=== PATIENT | male | born 1990 | race Caucasian/White ===

== ENCOUNTER 2023-08-07 13:49 | Emergency (ER) | payer MEDICAID, SELFPAY ==
--- NOTE | 2023-08-07 14:00 | DI.RAD_ITS ---
Exam(s) XR SHOULDER LT COMPLETE 2+V EXAM: XR SHOULDER LT COMPLETE 2+V CLINICAL HISTORY: L shoulder pain, fall snowboarding. TECHNIQUE: 2D digital imaging was performed. Three views. COMPARISON: No exams were available for comparison FINDINGS: BONES: No acute fracture is present. No bony destructive lesion is seen. JOINTS: No dislocation present. SOFT TISSUE: Normal. IMPRESSION: Unremarkable radiographs of the left shoulder. DATA REPOSITORY: RADIATION DOSE DELIVERED:
[2023-08-07 14:02] VITALS: BP 142/92; PULSE 77; RESP 16; TEMP 36.8; O2SAT 97
--- NOTE | 2023-08-07 14:07 | W.ED.GENAD ---
Discharge Plan Disposition Patient Disposition: Home Condition: Stable Discharge Details Clinical Impression: AC separation Primary Care Provider: Unknown,Unknown ED Provider: Raad Hart Home Meds and New Rx's Prescriptions: No Action No Known Home Meds Discharge Instructions Instructions: Acromioclavicular Separation (ED) Additional Instructions: You were seen in the emergency department for your left shoulder injury suffered while snowboarding. You have a likely low-grade AC separation. Please keep your shoulder moving with gentle stretching exercises, rest, ice, compress and elevate the area, take adequate dosing of Tylenol and ibuprofen and follow-up with orthopedics for any persistent pain, do not try to overstrain your injured shoulder with any heavy lifting. Please use therapeutic dosing of Tylenol (acetamenophen) & Advil (ibuprofen) in an alternating fashion as follows: Take 1000mg of Tylenol every 6 hours without missing doses- that is 4 times per day. Senior Living in between the Tylenol dosings, take 400-600mg of Advil also on a 6 hour schedule, that is also 4 times per day. The daily maximum dosing of Tylenol is 4000mg, and the daily maximum dosing of Advil is 2400mg. This is safe to do for weeks. Please note that some common cold medications & prescription pain medications may contain acetamenophen and you need to read OTC drug labels and factor that in to maximum daily dosings. Referrals: [facility] [Provider Group] Discharge Data Discharge Date/Time-TO BE ENTERED AT DEPARTURE: 08/07/23 15:05 HPI General Date/Time Provider Initiated Documentation: 08/07/23 14:05. HPI Narrative: 32 year-old male presents to ED today by POV/ambulating with a chief complaint of L shoulder injury while snowboarding, direct impact to L shoulder with onset just prior to arrival. Quality described as pain with movement of the shoulder, slightly reduced ROM, some tingling down arm, no radiation to deformity, gross swelling, skin changes, neck pain, headstrike, LOC, complete numbness of arm. Severity is described as moderate. Palliating factors include nothing specific attempted yet. Provoking factors include nothing specific. Patient not anticoagulated. Related Data Home Medications Medication Instructions Recorded Confirmed Unknown [No Known Home Meds] 01/29/15 08/07/23 Allergies Allergy/AdvReac Type Severity Reaction Status Date / Time No Known Allergies Allergy Unverified 08/07/23 14:14 General Stated Complaint: Orthopedic MANUEL: 4 Review of Systems All systems reviewed & are unremarkable except as noted in HPI and below Exam Narrative Exam Narrative: GENERAL APPEARANCE: Well-nourished, non-toxic, awake and alert, atraumatic, no acute distress. SKIN: Warm, pink, dry, intact, without rashes/lesions/ulcerations. HEAD: Normocephalic, atraumatic, normal hair distribution for gender/age. EYES: Pupils PERRLA, EOMs intact without nystagmus, normal conjunctiva, no exudates on lids/lashes. ENT: Nares patent, no circumoral cyanosis, no facial swelling NECK: Supple, trachea midline, painless cervical ROM. LUNGS/CHEST: Non-labored respirations, normal A/P diameter, symmetrical expansion, no chest wall deformity HEART (CV/PV): No peripheral edema, no JVD. ABDOMEN: Soft, non-distended, no guarding. MSK: Normal ROM, no swelling/deformity to bilateral UEs or LEs, moving all extremities without weakness, no cyanosis, spine midline without tenderness, normal curvature. L Shoulder: Tenderness to the shoulder without crepitus, no major swelling, no squared off appearance, range of motion intact in the shoulder, slight pain at very maximal range of motion, financial services specialist strength 5/5, left radial pulse 2+, no crepitus to the distal arm, slight prominence of left distal clavicle NEURO: Mental Status AAOx4 - alert to person, place, time, events No facial droop, no forehead involvement. Motor: No focal weakness - strength 5/5 in bilateral UEs and LEs, proximal and distal, symmetric. Sensory: sensation intact to light touch globally. Gait normal: patient ambulated without ataxia into ED room. PSYCH: euthymic, cooperative, pleasant, appropriate speech Course Vital Signs Vital signs: Vital Signs Temperature 36.8 C 08/07/23 14:02 Pulse 77 08/07/23 14:02 Respiratory Rate 16 08/07/23 14:02 Blood Pressure 142/92 H 08/07/23 14:02 Pulse Oximetry 97 08/07/23 14:02 Temperature 36.8 C 08/07/23 14:02 Pulse 77 08/07/23 14:02 Respiratory Rate 16 08/07/23 14:02 Blood Pressure 142/92 H 08/07/23 14:02 Pulse Oximetry 97 08/07/23 14:02 Oxygen Delivery Method Room Air 08/07/23 14:02 Oxygen Flow Rate 0 08/07/23 14:02 Medical Decision Making This dictation utilizes [id number] dictation software and may contain unedited grammatical errors. 32 y/o M presents to ED today with a chief complaint of snowboarding fall just prior to arrival, direct impact to L shoulder, able to range the arm, denies severe pain, no deformity, denies headstrike/LOC. Patients' medical history: negative, otherwise healthy. Family and social history: noncontributory. Pertinent exam findings / vital signs include L Shoulder: Tenderness to the shoulder without crepitus, no major swelling, no squared off appearance, range of motion intact in the shoulder, slight pain at very maximal range of motion, financial services specialist strength 5/5, left radial pulse 2+, no crepitus to the distal arm, slight prominence of left distal clavicle. Differential / pathologies of concern include AC Separation, Fracture, Rotator Cuff Arthropathy. Diagnostic studies of: -XR L Shoulder - slight prominence of L distal clavicle, suspect low-grade AC separation without fracture. Interventions of: -counseled on Ortho f/u after aggressive tx for 1-2 weeks for sprain/failure to improve for AC separation. ED Course/Assessment/Plan: 32-year-old male presents with injury to left shoulder from snowboarding fall I do suspect he has a low-grade AC separation based on my review of the x-ray, he has no fracture no significant suspicion for neurovascular compromise. I counseled him on therapeutic dosing of Tylenol and ibuprofen, RICE therapy and following up with orthopedics should he feel he is not improving in 1 to 2 weeks. Findings not consistent with fracture, neurovascular compromise. Disposition of AC separation. Patient verbalized understanding of the plan and return to ED criteria and engaged in shared decision making. Medical Records Medical records reviewed: Yes I reviewed the patient's medical records. Imaging Data Radiologic Study: Attestation: I personally reviewed and interpreted this imaging study as follows: Imaging: X-Ray Radiologist's impression: EXAM: XR SHOULDER LT COMPLETE 2+V CLINICAL HISTORY: L shoulder pain, fall snowboarding. TECHNIQUE: 2D digital imaging was performed. Three views. COMPARISON: No exams were available for comparison FINDINGS: BONES: No acute fracture is present. No bony destructive lesion is seen. JOINTS: No dislocation present. SOFT TISSUE: Normal. IMPRESSION: Unremarkable radiographs of the left shoulder. Quality:SDOH Health Related Social Needs: No Data to Display PFSH All Active Problems (Updated 08/07/23 @ 14:47 by YOVANY Lewis) AC separation (Acute) Social History Smoking/Tobacco Use Status: Never Smoking risk assessment performed?: Yes Alcohol Intake: current Alcohol Intake frequency: a few times a month Drug use: Never Substance use type: does not use Housing: house Do you feel safe at home: Yes Do you feel safe in your relationship?: Yes
== END 2023-08-07 15:05 | disposition home or self-care (01) ==
LOC: ER 15:02
PROVIDERS: Emergency Provider Physician Assistant
DX: S43.102A Unspecified dislocation of left acromioclavicular joint, initial encounter (principal); W19.XXXA Unspecified fall, initial encounter; Y93.23 Activity, snow (alpine) (downhill) skiing, snowboarding, sledding, tobogganing and snow tubing
CPT/HCPCS: 99283; 73030

== ENCOUNTER 2024-02-09 14:12 | Emergency (ER) | payer OTHER, SELFPAY ==
[2024-02-09 14:14] VITALS: BP 133/91; PULSE 71; RESP 18; TEMP 36.6; O2SAT 97
--- NOTE | 2024-02-09 14:15 | DI.RAD_ITS ---
Exam(s) XR SHOULDER RT COMPLETE 2+V EXAM: XR SHOULDER RT COMPLETE 2+V CLINICAL HISTORY: pain s/p fall. TECHNIQUE: 2D digital imaging was performed. Five views. COMPARISON: CR XR SHOULDER LT COMPLETE 2+V from 08/07/2023 FINDINGS: BONES: No acute fracture is present. No bony destructive lesion is seen. JOINTS: No no glenoid humeral joint dislocation present. The AC joint is widened. The acromial clav icular distance is also widened. The clavicle projects superior to the level of the acromion. Mild spurring at the glenoid. SOFT TISSUE: Normal. IMPRESSION: Acromioclavicular joint separation. DATA REPOSITORY: RADIATION DOSE DELIVERED:
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
[2024-02-09 15:28] VITALS: BP 120/78; PULSE 80; RESP 18; TEMP 36.8; O2SAT 97
== END 2024-02-09 15:35 | disposition home or self-care (01) ==
PROVIDERS: Emergency Provider Emergency Medicine
DX: S43.101A Unspecified dislocation of right acromioclavicular joint, initial encounter (principal); V18.0XXA Pedal cycle driver injured in noncollision transport accident in nontraffic accident, initial encounter
CPT/HCPCS: 99283; 73030

== ENCOUNTER 2024-02-20 15:39 | Outpatient (CLI) | payer OTHER, SELFPAY ==
--- NOTE | 2024-02-20 15:15 | DI.RAD_ITS ---
Exam(s) XR CLAVICLE RT EXAM: XR CLAVICLE RT INDICATION: F/U ACJ SEPARATION. COMPARISON: CR XR SHOULDER LT COMPLETE 2+V from 08/07/2023 CR XR SHOULDER RT COMPLETE 2+V from 02/09/2024 TECHNIQUE: 2D digital imaging was performed. Two views. FINDINGS: There is increased widening of the AC joint and coracoclavicular distance compared to the prior exam. No evidence of fractures. DATA REPOSITORY: RADIATION DOSE DELIVERED:
== END 2024-02-20 15:40 | disposition home or self-care (01) ==
LOC: DIORS 15:40
PROVIDERS: Visit Provider Student in an Organized Health Care Education/Training Program
DX: S43.101D Unspecified dislocation of right acromioclavicular joint, subsequent encounter (principal); X58.XXXD Exposure to other specified factors, subsequent encounter
CPT/HCPCS: 73000

== ENCOUNTER 2024-03-12 11:12 | Outpatient (CLI) | payer OTHER, SELFPAY ==
--- NOTE | 2024-03-12 08:30 | DI.MRI_ITS ---
Exam(s) MR UPPER JOINT RT WO EXAM: MR UPPER JOINT RT WO CLINICAL HISTORY: SURGICAL PLANNING S43.101A DISLOCATION RT SHOULDER TECHNIQUE: Multiplanar multisequence MRI of the shoulder was performed. COMPARISON: CR XR SHOULDER LT COMPLETE 2+V from 08/07/2023 CR XR SHOULDER RT COMPLETE 2+V from 02/09/2024 CR XR CLAVICLE RT from 02/20/2024 FINDINGS: MARROW:There is no evidence of fracture, Hill-Sachs deformity, nor ominous osseous lesions. AC JOINT: There is disruption of the AC joint with 1 cm between the articular surfaces and the latera l clavicle located higher than acromium articular surface and with tearing of both the superior and i nferior aspects of the capsule of the AC joint and intervening fluid.. There is abnormal signal rela antonietta to the coracoclavicular ligaments (trapezoid and conoid ligaments), consistent with tearing of this structure. There is some bone edema within the clavicle at this leve l. There is no bone edema within the coracoid. No evidence of os acromial. GLENOHUMERAL JOINT: No joint effusion nor obvious loose intra-articular bodies. No chondral defects. No osteophytes. No degenerative subarticular cysts. ROTATOR CUFF MECHANISM: Supraspinatus: Intact. No evidence of tear nor muscle atrophy. Infraspinatus: Intact. No evidence of tear nor muscle atrophy. Teres Minor: Intact. No evidence of tear nor muscle atrophy. Subscapularis/anterior cuff: Intact. No abnormal signal at the level of the multipennate insertional fibers. No significant tear nor atrophy. BICEPS TENDON: Exhibits normal position within the intertubercular groove. No evidence of tear. There is a small amount of fluid within the biceps tendon sheath at the level the intertubercular yeison ove. LABRUM: There is multilevel labral tearing There is tearing in the anterior labrum above the midline. There is also fluid signal interposed betw een the posterior labrum and osseous glenoid consistent with posterior labral tearing. There is no te aring of the anterior superior labrum but there does appear to be tearing in the posterior aspect of the superior labrum at junction with the posterior labrum. There is no evidence of avulsion of the anterior-inferior labrum, inferior glenohumeral ligament comp keri nor disruption of the scapular periosteum to suggest the presence of a typical Bankart lesion. There is a partially septated cystic structure behind the inferior aspect of the osseous glenoid lj uring approximately 1.4 by 0.5 cm. This may represent a paralabral cyst. It would appear to be coming off of the posterior labral area. IMPRESSION: 1. High-grade disruption of the acromioclavicular joint/capsule as well as additional tearing of the components of the coracoclavicular ligament. 2. Multilevel labral tearing as above without evidence of biceps tendon tear nor displacement. 3. There is a 14 x 5 mm septated cystic structure as described above which is probably a paralabral c yst related to the posterior labral tearing. 4. There is no evidence of significant injury of the 4 muscles of the rotator cuff mechanism. DATA REPOSITORY:
== END 2024-03-12 11:32 ==
LOC: DI 11:18
PROVIDERS: Visit Provider Student in an Organized Health Care Education/Training Program
DX: M75.111 Incomplete rotator cuff tear or rupture of right shoulder, not specified as traumatic (principal)
CPT/HCPCS: 73221

== ENCOUNTER 2024-03-28 06:10 | Day surgery (SDC) | payer OTHER, SELFPAY ==
[2024-03-28] VITALS (25 sets, daily range): BP systolic 96–124; BP diastolic 55–87; PULSE 62–79; RESP 11–20; TEMP 36.1–36.7; O2SAT 96–99; BMI 247.7
--- NOTE | 2024-03-28 | DI.RAD_ITS ---
Exam(s) XR SHOULDER RT 1V EXAM: XR SHOULDER RT 1V CLINICAL HISTORY: ACJ reconstruction. TECHNIQUE: 2D digital imaging was performed of the right shoulder. One images were obtained. AP vi ews were obtained. COMPARISON: CR XR SHOULDER RT COMPLETE 2+V from 02/09/2024 FINDINGS: There has been interval reduction of the previously seen right AC joint separation. There is normal alignment of the acromioclavicular joint on the current examination. No fracture is identified. IMPRESSION: Interval reduction and reconstruction of the right acromioclavicular joint. DATA REPOSITORY: RADIATION DOSE DELIVERED:
[2024-03-28] MEDS: Lactated Ringers 500 ML 30 ML IV (06:55)
--- NOTE | 2024-03-28 06:55 | W.ANESPRE ---
General Info Date of Service Date Performed: 03/28/24 Height: 5 ft 11 in Weight: 806 kg Body Mass Index (BMI): 247.7 Surgical Procedure: Operation Date: 03/28/24 07:40 Proposed Procedure Side Surgeon p Shoulder Arthroscopyw/Labral Debridement VS Repair, Open Acrmioclavicular Joint Reconstruction w/Allograft Right Chandra Rios MD Meds Allergies and Home Medications Allergies Allergy/AdvReac Type Severity Reaction Status Date / Time No Known Allergies Allergy Verified 03/28/24 06:36 Home Medication ?Medication ?Instructions ?Recorded Unknown [No Known Home Meds] 01/29/15 Current Visit Medications: Current Medications Generic Name Dose Route Start Last Admin Trade Name Freq PRN Reason Stop Dose Admin Droperidol 0.625 mg 03/28/24 06:23 Droperidol 5 Mg/2 Ml Vial IVP 04/27/24 06:22 DIRECTED PRN Nausea Ephedrine Sulfate 0 mg 03/28/24 06:23 Ephedrine 25 Mg/5 Ml Syringe IVP 04/27/24 06:22 DIRECTED PRN Fentanyl 0 mcg 03/28/24 06:23 Fentanyl 100 Mcg/2 Ml Vial IVP 04/27/24 06:22 DIRECTED PRN Hydromorphone HCl 0 mg 03/28/24 06:23 Hydromorphone 1 Mg/Ml Syr IVP 04/27/24 06:22 DIRECTED PRN Cefazolin Sodium/Dextrose 2 gm in 50 mls @ 100 mls/hr 03/28/24 06:00 Ancef Duplex IVPB 03/28/24 16:00 PREOP KAL Tranexamic Acid/Sodium Chloride 1,000 mg in 100 mls @ 600 mls/hr 03/28/24 06:00 IVPB 03/28/24 16:00 PREOP KAL Ringer's Solution 500 mls @ 30 mls/hr 03/27/24 18:15 IV 04/26/24 18:14 INFUSION [facility] IV Miscellaneous Supplies 1 each 03/28/24 06:00 Iv Access IV 04/26/24 23:59 DIRECTED KAL Naloxone HCl 0 mg 03/28/24 06:23 Naloxone 0.4 Mg/Ml Vial IVP 04/27/24 06:22 PRN PRN Sodium Chloride 0 ml 03/28/24 06:00 Normal Saline Flush 10 Ml Syr IV 04/26/24 23:59 PRN PRN Sodium Chloride 0 ml 03/28/24 06:00 Normal Saline 10 Ml Vial IJ 04/26/24 23:59 DIRECTED PRN Sterile Water 0 ml 03/28/24 06:00 Water,Injection,Sterile 10 Ml Vial IJ 04/26/24 23:59 DIRECTED PRN PFSH Surgical History Surgical History Hx of tonsillectomy Hx of wisdom tooth extraction Tobacco Smoking/Tobacco Use Status: Never Alcohol Alcohol Intake: current Alcohol intake frequency: a few times a month Alcohol type: beer Substance Use Substance use: Never Substance use type: does not use and marijuana Details: smoked marijuana 03/26/24 Vital Signs and Lab Results Vital Signs Most Recent Vital Signs in EMR: Most Recent Vital Signs Temp Pulse Resp BP Pulse Ox 36.7 C 69 14 124/87 98 03/28/24 06:30 03/28/24 06:30 03/28/24 06:30 03/28/24 06:30 03/28/24 06:30 Lab Results Blood Type / Crossmatch: No Data to Display Complete Blood Count: No Data to Display Complete Metabolic Panel: No Data to Display Liver Function Panel: No Data to Display Coagulation Panel: No Data to Display Cardiac Panel: No Data to Display Arterial Blood Gas: No Data to Display Venous Blood Gas: No Data to Display Pancreas Panel: No Data to Display Thyroid Panel: No Data to Display Infectious Disease: No Data to Display Blood Cultures: No Data to Display Toxicology Panel: No Data to Display Anesthesia Assessment and Plan Anesthesia History Personal History: No History of Anesthesia Complications Family History: No Family History of Anesthesia Complications Exercise Tolerance Exercise Tolerance: Metabolic Equivalents>4 Pertinent Negatives Pertinent Negatives: No Symptoms of GERD Cardiac & Pulmonary Exam Cardiac Exam: Normal S1/S2 Heart Sounds Pulmonary Exam: Clear Bilateral Breath Sounds Implantable Cardiac Device Does patient have a Pacemaker or an ICD?: No Airway Exam Known Difficult Airway: No Mallampati Class: 2 Mouth Opening: Narrow (< 3cm) Thyromental Distance: Less than 3 cm Neck Range of Motion: Full ROM Neck Circumference: Normal Teeth Condition: Normal Dentition ASA Classification ASA Score: ASA 2 Emergency Case?: No NPO Status NPO Status: NPO Clears >2 hours, Solids >8 hours Anesthesia Plan Resuscitation Status: Full Code Anesthesia Technique: General Anesthesia Airway Planned: Endotracheal Tube Monitors Used: Standard Monitors
--- NOTE | 2024-03-28 07:07 | W.PM.DSUDISC ---
Date of service: 03/28/24 Time of Service: 12:30 Discharge Plan Disposition Patient Disposition: Home Condition: Stable Discharge Details Attending Provider: Chandra Rios Primary Care Provider: None,None Home Meds and New Rx's Prescriptions: New naproxen 250 mg tablet 250 - 500 mg PO BID PRN (Reason: Moderate pain) Qty: 40 0RF oxycodone 5 mg tablet 5 - 10 mg PO Q4H PRN (Reason: Moderate to severe pain) Qty: 18 0RF Discharge Instructions Additional Instructions: Surgery: Right shoulder arthroscopy with labral repair and open acromioclavicular joint reconstruction with allograft Activity: For 6 weeks, you should keep your arm at your side in a neutral position at all times except for physical therapy. Do not try to lift or raise your arm using your own muscles. You should use the sling most of the time unless your forearm/elbow is supported/elevated on pillows. Avoid stressing the separation repair with gravity. Do not allow the arm to dangle at your side. A physical therapy prescription will be sent electronically to begin in about 6 weeks. Prescriptions: Naproxen 250 mg take 1-2 every 12 hours with a meal as needed for moderate pain Oxycodone 5 mg take 1-2 every 4-6 hours as needed for severe pain You may use [id number] Tylenol (acetaminophen) as needed for mild pain. These pain medications may be taken all at once or in different combinations as needed. Also, recommend Colace (docusate) as a stool softener as surgery and pain medicine cause constipation. You may try [id number] diphenhydramine (Benadryl) 25-50 mg nightly as a sleep aid Dressings: Remove shoulder bandage after 3 days. Leave the sticky Steri-Strips in place until they fall off or remove them after you shower. Cover the incisions with Band-Aids or leave them open to air. The AC joint Band-Aid (top of shoulder) is separate. You should leave this one on a few days longer if it is difficult to remove. There is also glue underneath this bandage that can be left in place until it peels off. You may shower after 5 days. Follow-up: 10-[address] Rios You may take off the leg compression stockings this evening at home. You may also leave them on a few days longer if you have a history of leg swelling or edema. Let us know right away if you develop any redness, drainage, fevers, chest pain, or trouble breathing. Do not drink alcohol or drive for at least 24 hours after anesthesia. Please call the office during business hours with any questions or concerns. Stand Alone Forms: Anesthesia Discharge Inst., Anes.Nerve Block Instructions, Adela Viramontes (DSU) Referrals: Chandra Rios MD [ [facility] STAFF PHYSICIAN] - 04/09/24 1:45 pm Discharge Orders Discharge Orders: Discharge Order (Routine); Ordered 03/28/24 Ordered By: Jose A Macias DS: Diagnosis Discharge Diagnosis (1) Separation of right acromioclavicular joint: Status: Inactive (2) Tear of right glenoid labrum: Status: Acute
--- NOTE | 2024-03-28 07:17 | ROE_ITS ---
Date of service: 03/28/24 Time of Service: 07:30 Operative Note Operative Note DATE OF PROCEDURE: 03/28/24 PRE-OP DIAGNOSIS: Right shoulder: 1. Labral tearing with para-labral cyst 2. High-grade AC joint separation POST-OP DIAGNOSIS: same PROCEDURE: Right shoulder: 1. Arthroscopic labral repair, CPT #90247: This involved suture anchor repair of the posterior labrum 2. Open acromioclavicular joint reconstruction with allograft, CPT #16751: This involved open reduction of AC joint and permanent suture tape and allograft tendon fixation of the distal clavicle to the acromion. The mobile sales assistant was medically required in order to help assist in techniques above, which require positioning the arm, holding the arthroscope, and manipulating multiple instruments and sutures at the same time. This cannot be done without the help of an experienced mobile sales assistant. SURGEON: Chandra Rios [employer] APPRENTICE: Jose A Macias ANESTHESIA TYPE: Local By Surgeon, General LMA/ETT and Primary Nerve Block Refer to Anesthesia Record ESTIMATED BLOOD LOSS: 10 PATHOLOGY: none sent COMPLICATIONS: None Patient was transported to: PACU Patient's condition: stable Implants: Arthrex: 2.9 mm push lock x 1 Indications: The patient was diagnosed with the above conditions and appropriately indicated for surgical intervention. Please see complete medical record for details. Findings: Exam under anesthesia: Full range of motion, no anterior or posterior instability. Significantly elevated unstable distal clavicle. Glenohumeral joint: Redundant superior labrum with otherwise stable biceps anchor supraglenoid labral recess. Moderate anterior and superior labral fraying, obvious posterior central labral tear. No redundant capsule, no Hill- Sachs, no signs of shoulder joint instability. Cartilage otherwise perfectly intact. Articular rotator cuff and subscapularis completely intact. Procedure Description: In the operating room, general anesthesia was induced. Bilateral shoulders were examined. The patient was positioned in the beachchair position. All bony prominences were well-padded. Preoperative antibiotics were administered. The shoulder was prepped and draped in the usual sterile fashion. The correct patient, procedure, and side of the procedure were all verified prior to incision. Starting through the posterior portal a standard complete diagnostic arthroscopy was performed of the glenohumeral joint including inspection of the long head of the biceps, anterior and superior labrum, subscapularis tendon, supraspinatus and infraspinatus tendons, and axillary recess. The glenoid and humeral head cartilage as well as the posterior labrum were inspected from an anterior viewing portal. The labral abnormalities from anterior to superior to posterior carefully examined. Did not seem to represent any shoulder instability and without biceps problem or symptoms does not really need biceps tenodesis or SLAP repair. The obviously redundant labrum was debrided with the torpedo shaver established and a nice more appropriate contour from anterior through superior to posterior. The remaining labrum biceps anchor appeared appropriate. Posteriorly centrally, the labral tear was more obvious and looked more like an injury and there was probably an orifice to the cyst seen on MRI. The opening was probed, compression done with switching stick, and debrided with mechanical shaver and vacuum used to attempt cyst decompression. The posterior labrum defect of the glenoid in this area looked like he would benefit best from repair. Care was taken to avoid incorporating much capsular ligamentous tissue given the lack of instability and mostly need for closure to prevent recurrent or worsening cyst problem. A rigid cannula was inserted and an accessory poste rior portal. The 90 degree lasso used to secure the posterior labrum at the zone of injury shuttling a suture tape FiberLink. The eccentric drill guide was then used to drill for a push lock anchor which was loaded with repair suture and nicely deployed repairing the labrum to the glenoid margin and completely closing the defect in this area. The remainder of the posterior labrum was stabilized. The shoulder was drained of arthroscopic fluid. A moderate longitudinal incision was made centered over the AC joint. The distal clavicle was readily exposed in its elevated position and elevators used to expose the superior bone, rongeur was used to remove interposed scar tissue, remove a few millimeters of the distal clavicle bone to accommodate repair and prevent post as traumatic pain, and excised capsule to expose the AC joint for repair centrally while preserving tissue that was elevated at the anterior and posterior most margins. The corresponding superior medial aspect of the ac romion was exposed and tissue elevated. The graft was prepared on the back table measured 4 mm x 260 mm semitendinosis. About 2 cm was trimmed off 1 end of quite thin and friable tendon. The remaining tails were prepared with fiber loop. The distal clavicle and medial acromion was then measured in about a centimeter off of the joint margin with careful spacing anterior posterior for 3.5 mm drill holes were made from superior to inferior taking care to protect underlying rotator cuff from the drill. These drill holes were then enlarged with a 4.0 mm drill to accommodate both the graft and the plan FiberTape. FiberLink's were used to shuttle both ends of the graft and FiberTape from inferior to superior through the holes in the distal clavicle and then through the AC joint and then from inferior to superior on the acromion. The arm was removed from the spider blackwell to remove gravity, elbow gently supported by the mobile sales assistant with moderate downward pressure placed on the distal clavicle, which nicely reduced the distal clavicle to the acromion with good position anterior posterior and superiorly inferiorly. The fiber tape tails and graft tails were then carefully tensioned. The FiberTape ends were tied over the acromion and nicely maintained the reduction once the downward pressure on the distal clavicle was released. The graft tails were then tied together and then secured with suture tape. The construct was stable with excellent AC joint reduction and seemingly physiologic motion of the distal clavicle still present. The longer graft tail was then brought over the AC joint and secured between the graft on the distal clavicle to add tissue and coverage in the superior capsule void. The wound was copiously irrigated. The thick preserve capsule and the anterior posterior margin was closed tightly over the construct using 0 Vicryl. Subcutaneous tissue washed and irrigated and then closed using 2-0 Monocryl buried interrupted. 3-0 Monocryl running was done to close the skin followed by skin glue applied and Mepilex bandage. All portal sites were copiously irrigated. These incisions were closed using 3- 0 Monocryl in a buried fashion and then covered with Mastisol, Steri-Strips, Xeroform, dry gauze, and ABDs. The dressings were covered and secured with Medipore tape. The operative extremity was placed into a sling for immobilization. The patient awoke from anesthesia without complication and was transferred to the recovery room in a stable condition.
[2024-03-28] MEDS: ceFAZolin 2 GM/50 ML BAG IVPB (07:39)
[2024-03-28] MEDS: TRANEXAMIC ACID/SOD. CHL. 1,000 MG/100 ML BAG 600 MG IVPB (07:47)
[2024-03-28] MEDS: Bupivacaine 0.25% Pres-Free W/EPI 30 ML VIAL (08:23)
[2024-03-28] MEDS: EPINEPHrine 10 MG/10 ML ML (08:23)
--- NOTE | 2024-03-28 08:23 | W.ANESNERVE ---
Nerve Block Single Injection Procedure Date and Time Date Performed: 03/28/24 Procedure Start: 07:10 Location Where Procedure Performed Procedure Location: Day Surgery Unit Reason Performed: Postoperative Analgesia Requesting Provider: Chandra Rios Timeout Performed Timeout Performed: Yes Monitoring Used ECG, Blood Pressure, ETCO2 and See EMR for corresponding vital signs Sterility Sterility: Hand Hygiene, Surgical Cap, Surgical Mask, Sterile Gloves and Chlorhexidine Sedation Given During Procedure Sedation Given (Indicate Dose Given): Versed IV Dose:: 4mg IVP Patient Mental Status Patient Mental Status: Sedate with meaningful communication Nerve Block 1st Nerve Block: Laterality: Right Block Type: Interscalene Ultrasound Image Saved?: Yes Needle / Catheter Used: 80mm SonoPlex II Local Anesthetic Bolus (Indicate Dose Given): Lidocaine used for local infiltration of skin, Injected in 3-5ml increments after negative blood aspiration, Bupivacaine 0.5% Dose:: 10cc/0.5% (50mg) and Exparel Dose:: 10cc/1.33% (133mg) Additives (Indicate Dose Given): Epinephrine to make 1:200,000 (5mcg/ml) Dose:: 100mcg and Decadron Dose:: 10mg PF Ultrasound: Sterile probe cover and gel used Nerve Stimulator: Not Used Paresthesia: None Procedure Tolerated: No Complications and Patient tolerated well Procedure Outcome: Successful Performed By: Leo Vance
--- NOTE | 2024-03-28 13:10 | W.ANESPOSTOP ---
Postoperative Evaluation Date, Time and Location Date Performed: 03/28/24 Time Performed: 13:10 Patient Location: Day Surgery Unit Vital Signs Most Recent Imported Vital Signs: Most Recent Vital Signs Temp Pulse Resp BP Pulse Ox 36.1 C L 68 16 116/69 96 03/28/24 12:40 03/28/24 12:40 03/28/24 12:40 03/28/24 12:40 03/28/24 12:40 Pain Score Most Recent Pain Score: Most Recent Pain Score Pain Level 0 03/28/24 12:40 Assessment Mental Status: Awake (Alert & Oriented to Patient Baseline) Airway and Respiratory Function: Patent airway with normal (patient baseline) respiratory exam Cardiovascular Function: Hemodynamically Stable Hydration Status: Adequately Hydrated Nausea & Vomiting: No Nausea or Vomiting Pain: Pt. Denies Any Pain Peripheral Nerve Block: Regional nerve block not resolved at time of post operative discharge
== END 2024-03-28 14:00 | disposition home or self-care (01) ==
LOC: SUR 06:10
PROVIDERS: Visit Provider Student in an Organized Health Care Education/Training Program
PROC: (CPT 29805; principal; 2024-03-28 07:30)
DX: S43.101A Unspecified dislocation of right acromioclavicular joint, initial encounter (principal); S43.431A Superior glenoid labrum lesion of right shoulder, initial encounter; X58.XXXA Exposure to other specified factors, initial encounter
CPT/HCPCS: 29806; 23552; 64415; 73020; C9290; J0131; J0171; J0665; J0690; J1100; J1885; J2250; J2405; J2704; J3370

== ENCOUNTER 2024-04-09 14:55 | Outpatient (CLI) | payer OTHER, SELFPAY ==
--- NOTE | 2024-04-09 13:45 | DI.RAD_ITS ---
Exam(s) XR SHOULDER RT 1V EXAM: XR SHOULDER RT 1V CLINICAL HISTORY: F/U ACJ RECONSTRUCTION. TECHNIQUE: 2D digital imaging was performed. One view COMPARISON: CR XR CLAVICLE RT from 02/20/2024 CR XR SHOULDER RT 1V from 03/28/2024 FINDINGS: Bones: No acute fracture is present. No bony destructive lesion is seen. The AC joint is not widened . The coracoclavicular distance is normal. Humeral head appears normally positioned. SOFT TISSUE: Mild swelling superior to the AC joint IMPRESSION: Stable postoperative changes. DATA REPOSITORY: RADIATION DOSE DELIVERED:
== END 2024-04-09 14:56 | disposition home or self-care (01) ==
LOC: DIORS 14:55
PROVIDERS: Visit Provider Student in an Organized Health Care Education/Training Program
DX: S43.101D Unspecified dislocation of right acromioclavicular joint, subsequent encounter (principal); X58.XXXD Exposure to other specified factors, subsequent encounter; Z98.890 Other specified postprocedural states
CPT/HCPCS: 73020

== ENCOUNTER 2024-05-14 11:21 | Outpatient (CLI) | payer OTHER, SELFPAY ==
--- NOTE | 2024-05-14 09:00 | DI.RAD_ITS ---
Exam(s) XR SHOULDER RT 1V EXAM: XR SHOULDER RT 1V INDICATION: F/U ACJ SEPARATION. COMPARISON: CR XR CLAVICLE RT from 02/20/2024 MR MR UPPER JOINT RT WO from 03/12/2024 CR XR SHOULDER RT 1V from 03/28/2024 CR XR SHOULDER RT 1V from 04/09/2024 TECHNIQUE: 2D digital imaging was performed. One views. FINDINGS: There are postsurgical changes at the distal clavicle and acromion. There is a question of slight widening at the AC joint compared the previous exam versus differences in projection. DATA REPOSITORY: RADIATION DOSE DELIVERED:
== END 2024-05-14 11:22 | disposition home or self-care (01) ==
LOC: DIORS 11:21
PROVIDERS: Visit Provider Physician Assistant
DX: M75.111 Incomplete rotator cuff tear or rupture of right shoulder, not specified as traumatic (principal); Z98.890 Other specified postprocedural states
CPT/HCPCS: 73020

== ENCOUNTER 2024-06-25 15:01 | Outpatient (CLI) | payer OTHER, SELFPAY ==
--- NOTE | 2024-06-25 09:15 | DI.RAD_ITS ---
Exam(s) XR SHOULDER RT 1V EXAM: XR SHOULDER RT 1V CLINICAL HISTORY: F/U RIGHT ACJ RECONSTRUCTION. TECHNIQUE: 2D digital imaging was performed. One AP neutral view. COMPARISON: CR XR CLAVICLE RT from 02/20/2024 CR XR SHOULDER RT 1V from 03/28/2024 CR XR SHOULDER RT 1V from 04/09/2024 CR XR SHOULDER RT 1V from 05/14/2024 FINDINGS: There is further widening of the AC joint when compared to the previous exam. There has been some sridhar ny resorption at the distal end of the clavicle. Some soft tissue swelling remains present around the AC joint. IMPRESSION: Abnormal widening of the AC joint status post reconstruction. DATA REPOSITORY: RADIATION DOSE DELIVERED:
== END 2024-06-25 15:02 | disposition home or self-care (01) ==
LOC: DIORS 15:01
PROVIDERS: Visit Provider Student in an Organized Health Care Education/Training Program
DX: Z98.890 Other specified postprocedural states (principal)
CPT/HCPCS: 73020

== ENCOUNTER 2024-09-24 09:40 | Outpatient (CLI) | payer OTHER, SELFPAY ==
--- NOTE | 2024-09-24 09:00 | DI.RAD_ITS ---
Exam(s) XR CLAVICLE RT EXAM: XR CLAVICLE RT CLINICAL HISTORY: F/U ACJ RECONSTRUCTION. TECHNIQUE: 2D digital imaging was performed. COMPARISON: CR XR CLAVICLE RT from 02/20/2024 FINDINGS: Two views There has been interval surgery at the right AC joint level. Height of the clavicle is still slightly high relative to the a chromium and coracoid process. Surgi hardeep widening of the AC joint noted. No osseous lesions. No radiographic evidence of osteomyelitis. IMPRESSION: As above. DATA REPOSITORY: RADIATION DOSE DELIVERED:
== END 2024-09-24 09:41 | disposition home or self-care (01) ==
LOC: DIORS 09:41
PROVIDERS: PCP Student in an Organized Health Care Education/Training Program; Referring Provider Student in an Organized Health Care Education/Training Program; Visit Provider Student in an Organized Health Care Education/Training Program
DX: S43.101A Unspecified dislocation of right acromioclavicular joint, initial encounter (principal); X58.XXXA Exposure to other specified factors, initial encounter
CPT/HCPCS: 73000